=== PATIENT | male | born 1980 | race Caucasian/White ===

== ENCOUNTER 2022-06-11 13:28 | Emergency (ER) | payer OTHER ==
[~2022-06-11] VITALS: Ht 170.2 cm; Wt 86.2 kg
[~2022-06-11 13:28] MED LIST: IBUPROFEN600 MG PO
--- NOTE | 2022-06-12 07:45 | EKG ---
[facility] [address] [facility] [place] [address] Signed Normal sinus rhythm Normal ECG No previous ECGs available Confirmed by VELASQUEZ MOMIN MD ([id number] on 06/12/2022 7:45:09 AM Electronically Signed By: VELASQUEZ MOMIN MD 06/12/22 0745 PATIENT NAME: NELMISSAELFUNMI PENN Electrocardiogram DATE OF : 82 PHYSICIAN: VELASQUEZ MOMIN MD REPORT #: [id number] REPORT IS CONFIDENTIAL AND NOT TO BE RELEASED WITHOUT AUTHORIZATION
== END 2022-06-11 16:53 | disposition home or self-care (01) ==
LOC: ED 13:28
DX: R10.13 Epigastric pain (principal); Z88.0 Allergy status to penicillin
CPT/HCPCS: 36415; 71045; 80053; 83735; 84484; 85025; 93005; 93010; 99284-25